=== PATIENT | male | born 1990 | race African-American/Black ===

== ENCOUNTER 2018-05-21 09:07 | Day surgery (SDC) | payer OTHER ==
[2018-05-21] MEDS: LR 1,000 ML IV (10:17)
[2018-05-21] MEDS ORDERED: LIDOCAINE 2% INJ 100 MG/5 ML SDV (FOR ANES.) As Ordered (12:16)
[2018-05-21] MEDS ORDERED: PROPOFOL 200 MG/20 ML VIAL As Ordered (12:16)
[2018-05-21] MEDS ORDERED: LR 1,000 ML IV (13:15)
== END 2018-05-21 13:28 | disposition home or self-care (01) ==
LOC: M SDC 09:07
DX: G47.30 Sleep apnea, unspecified (principal); Z79.899 Other long term (current) drug therapy
CPT/HCPCS: 31231

== ENCOUNTER → 2019-05-01 | Outpatient (CLI) | payer OTHER ==
[~2019-05-01] MED LIST: TRAM50TA2 PO
--- NOTE | 2019-05-07 10:33 | SLEEPCENT ---
DATE OF PROCEDURE: 05/01/2019 ORDERED BY: Leigh Shelton NP Nocturnal polysomnography was performed for evaluation of sleep physiology in this patient with a history of excessive somnolence and nonrestorative sleep. 8 hours and 25 minutes of data were reviewed. There were 369 minutes of sleep identified. Sleep latency was prolonged and 61.5 minutes. Rapid eye movement (REM) latency was prolonged at 111.5 minutes. Sleep architecture was fair with three REM cycles. Overall sleep efficiency was 74.3%. The electrocardiogram showed sinus rhythm with an average heart rate of 52 beats per minute. Electroencephalogram (EEG) showed mild alpha intrusion into non REM stages. There were 43 respiratory events identified of 10 seconds in duration or greater for an apnea-hypopnea index of 7. The events were not exclusive to sleep stage nor body posture. Arousals from respiratory events occurred 6.2 times per hour and oxygen desaturations were seen into the low 80s. Remaining measures of sleep physiology were normal. IMPRESSION: Obstructive sleep apnea syndrome (G47.33). RECOMMENDATIONS: The patient should be encouraged to return to sleep disorder center for pressure therapy. In the interim, alcohol and sedative avoidance should be practiced and caution exercised during operation of motor vehicles.
== END ==
LOC: M SLEEP 19:50
PROVIDERS: ATTEND Nurse Practitioner Family
DX: G47.33 Obstructive sleep apnea (adult) (pediatric) (principal); R06.83 Snoring; R40.0 Somnolence